=== PATIENT | male | born 1995 | race Caucasian/White ===

== ENCOUNTER 2018-03-31 13:53 | Emergency (ER) | payer MEDICAID ==
[2018-03-31] MEDS ORDERED: Albuterol 0.083% Inhal Sol (2.5 mg/3 mL) UD INH STA ×2 (14:24→15:55)
[2018-03-31] MEDS ORDERED: Albuterol 0.083% Inhal Sol (2.5 mg/3 mL) UD ONE ×2 (14:37→16:05)
--- NOTE | 2018-03-31 14:53 | RAD ---
HISTORY: cough wheeze cp COMPARISON: None available TECHNIQUE: Chest PA and lateral FINDINGS: LUNGS: No focal consolidation. Please note that chest x-ray has limited sensitivity for the detection of pulmonary masses. PLEURA: No significant pleural effusion identified. No definite pneumothorax . CARDIOVASCULAR: The cardiomediastinal silhouette appears within normal limits of size. OSSEOUS STRUCTURES: No acute osseous abnormality identified. VISUALIZED UPPER ABDOMEN: Unremarkable. OTHER FINDINGS: None. IMPRESSION: No focal consolidation, significant pleural effusion, or definite pneumothorax identified.
--- NOTE | 2018-03-31 15:11 | C.PDOC ---
History Of Present Illness 22 y/o male, w/PMhx of remote asthma, presents to the ER c/o cough w/ white sputum x several days. Patient states that he has chest pain with coughing when he is lying down on his left side. Denies having fever,chills, headache, nausea, and vomiting. Time Seen by Provider: 03/31/18 14:19 Chief Complaint (Nursing): Chest Pain History Per: Patient History/Exam Limitations: no limitations Onset/Duration Of Symptoms: Days Current Symptoms Are (Timing): Still Present Severity: Moderate Past Medical History Reviewed: Historical Data, Nursing Documentation, Vital Signs Vital Signs: Last Vital Signs Temp 99 F 03/31/18 14:07 Pulse 56 L 03/31/18 14:07 Resp 20 03/31/18 14:07 BP 152/91 H 03/31/18 14:07 Pulse Ox 100 03/31/18 14:07 - Medical History PMH: Asthma Surgical History: No Surg Hx Family History: States: No Known Family Hx - Social History Hx Tobacco Use: Yes Hx Alcohol Use: No Hx Substance Use: No - Immunization History Hx Tetanus Toxoid Vaccination: No Hx Influenza Vaccination: No Hx Pneumococcal Vaccination: No Review Of Systems Constitutional: Negative for: Fever, Chills Cardiovascular: Positive for: Chest Pain (chest pain with cough) Respiratory: Positive for: Cough. Negative for: Shortness of Breath Gastrointestinal: Negative for: Nausea, Vomiting Physical Exam - Physical Exam Appears: No Acute Distress Skin: Normal Color, Warm, Dry Head: Atraumatic, Normacephalic Eye(s): bilateral: Normal Inspection Nose: Normal Oral Mucosa: Moist Neck: Supple Chest: Symmetrical, Tenderness (reproducible left-sided sterum/chest wall tenderness) Cardiovascular: Rhythm Regular Respiratory: No Rales, No Rhonchi, Wheezing (bilateral expiratory wheezing) Extremity: Normal ROM, No Pedal Edema, No Calf Tenderness, No Swelling Neurological/Psych: Oriented x3, Normal Speech, Normal Cognition ED Course And Treatment ECG: Interpreted By Me, Viewed By Me ECG Rhythm: Sinus Bradycardia Rate From EC O2 Sat by Pulse Oximetry: 100 (RA) Pulse Ox Interpretation: Normal - Radiology CXR: Viewed By Me, Read By Radiologist (No focal consolidation, significant pleural effusion, or definite pneumothorax identified.) - Other Rad CXR X-Ray: Viewed By Me, Read By Radiologist Interpretation: HISTORY: cough wheeze cp. COMPARISON: None available. TECH NIQUE: Chest PA and lateral. FINDINGS: LUNGS: No focal consolidation. Please note that chest x-ray has limited sensitivity for the detection of pulmonary masses. PLEURA: No significant pleural effusion identified. No definite pneumothorax . CARDIOVASCULAR: The cardiomediastinal silhouette appears within normal limits of size. OSSEOUS STRUCTURES: No acute osseous abnormality identified. VISUALIZED UPPER ABDOMEN: Unremarkable. OTHER FINDINGS: None. IMPRESSION: No focal consolidation, significant pleural effusion, or definite pneumothorax identified. Medical Decision Making Medical Decision Making: Peak Flow was 450 prior to any treatments. Plan: --EKG --CXR --Motrin PO pt with reduced pain s/p motrin, breathing feels easier. cxr neg. no longer wheezing. d/c with Motrin, albuterol and pmd f/u Disposition Counseled Patient/Family Regarding: Studies Performed, Diagnosis, Need For Followup, Rx Given - Disposition Referrals: Jose L Saleh MD [Medical Doctor] - Disposition: HOME/ ROUTINE Disposition Time: 17:10 Condition: IMPROVED Additional Instructions: Use inhaler 2 puffs every 6 hours. Take ibupforen for pain in chest. Follow up with Dr Saleh in an few days. Use Tessalon if needed for cough. Prescriptions: Albuterol HFA [Ventolin HFA 90 mcg/actuation (8 g)] 2 puff IH Q6 #1 inhaler Benzonatate [Tessalon Perles] 100 mg PO TID #9 sgl Ibuprofen [Motrin] 600 mg PO TID #30 tab Instructions: Acute Bronchitis, Adult (DC), Costochondritis (DC) Forms: [employer] (Wolof), General Discharge Instructions - Clinical Impression Clinical Impression: Bronchitis, Costochondritis, acute - PA / [employer] / Resident Statement MD/DO has reviewed & agrees with the documentation as recorded. - Scribe Statement The provider has reviewed the documentation as recorded by the Carley Dyson Provider Attestation All medical record entries made by the Sonjaibstuart were at my direction and personally dictated by me. I have reviewed the chart and agree that the record accurately reflects my personal performance of the history, physical exam, medical decision making, and the department course for this patient. I have also personally directed, reviewed, and agree with the discharge instructions and disposition.
[2018-03-31 17:32] VITALS: BP 141/81; PULSE 61; RESP 18; TEMP 98.9
--- NOTE | 2018-04-01 15:40 | CARD ---
APPROVED REPORT Date of service: 03/31/2018 EKG Measurement Heart [id number] <Conclusion> Poor data quality, interpretation may be adversely affected Sinus bradycardia Early repolarization Otherwise normal ECG
[2018-04-04 11:21] VITALS: O2SAT 100
== END 2018-03-31 17:31 | disposition home or self-care (01) ==
LOC: C.ER 13:53
DX: J40 Bronchitis, not specified as acute or chronic (principal); M94.0 Chondrocostal junction syndrome [Tietze]